=== PATIENT | female | born 1955 | race African-American/Black ===

== ENCOUNTER 2018-12-29 11:22 | Emergency (ER) | payer MEDICARE, MEDICAID ==
[~2018-12-29] VITALS: Ht 162.6 cm; Wt 104.0 kg
[2018-12-29] MEDS: ACETAMINOPHEN 650MG/20.3ML UDC PO ONE (12:42)
[2018-12-29] MEDS: KETOROLAC 15MG/ML VIAL IM ONE (15:10)
[2018-12-29 15:39] VITALS: BP 161/96
== END 2018-12-29 15:45 | disposition home or self-care (01) ==
LOC: ER 11:22
DX: S62.101A Fracture of unspecified carpal bone, right wrist, initial encounter for closed fracture (principal); S09.8XXA Other specified injuries of head, initial encounter; M25.571 Pain in right ankle and joints of right foot; E11.9 Type 2 diabetes mellitus without complications; I10 Essential (primary) hypertension; M25.552 Pain in left hip; V49.49XA Driver injured in collision with other motor vehicles in traffic accident, initial encounter; Y93.89 Activity, other specified; Y92.89 Other specified places as the place of occurrence of the external cause; Y99.8 Other external cause status; Z88.0 Allergy status to penicillin; Z88.2 Allergy status to sulfonamides; Z88.6 Allergy status to analgesic agent
CPT/HCPCS: 29125; 70450; 72125; 73110; 73502; 73610; 96372; 99284; J1885